=== PATIENT | male | born 1970 ===

== ENCOUNTER 2022-08-01 23:22 | Outpatient (CLI) | payer OTHER | END 2022-08-01 23:23 | disposition left against medical advice (07) | LOC: EMS 23:22 | DX: R55 Syncope and collapse (principal); R11.2 Nausea with vomiting, unspecified; R19.7 Diarrhea, unspecified; R42 Dizziness and giddiness ==

== ENCOUNTER 2023-11-05 08:00 | Outpatient (CLI) | payer OTHER ==
--- NOTE | 2023-11-05 21:19 | XRAY Report ---
PROCEDURE: Shoulder 2+V LT INDICATIONS: L SHOULDER PAIN TECHNIQUE: 2 views of the shoulder were acquired. COMPARISON: None. FINDINGS: Bones: No fractures or dislocations. No suspicious bony lesions. Visualized ribs appear intact. Mild early degenerative change in the acromial clavicular joint space. Soft tissues: No suspicious soft tissue calcifications. The visualized lungs are within normal limi ts. 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 Reviewed by: Tere Erwin MD on 11/05/2023 9:17 PM PDT Approved by: Tere Erwin MD on 11/05/2023 9:17 PM PDT Station ID: [id number]
== END 2023-11-05 08:01 | disposition home or self-care (01) ==
LOC: DI.N 08:00
PROVIDERS: ATTEND Physician Assistant
DX: M19.012 Primary osteoarthritis, left shoulder (principal)